=== PATIENT | male | born 1940 | race Caucasian/White ===

== ENCOUNTER → 2016-12-21 | Outpatient (CLI) | payer MEDICARE, BC ==
[~2016-12-21] MED LIST: ALEN70TA5 PO; ASCO500T12 PO; ASPI-496 PO; CYAN100072 PO; IRON18TA PO; PANT40TA3 PO; PRAV40TA2 PO; RIVA20TA PO; SOTA80TA PO; VIT1TABL32 PO
== END | disposition home or self-care (01) ==
LOC: CFH 12:42
PROVIDERS: ATTEND Internal Medicine
DX: I08.3 Combined rheumatic disorders of mitral, aortic and tricuspid valves (principal)
CPT/HCPCS: 93306